=== PATIENT | female | born 1960 | race Caucasian/White ===

== ENCOUNTER 2018-01-06 20:13 | Emergency (ER) | payer OTHER ==
[2018-01-06 21:14] VITALS: BP 131/81
--- NOTE | 2018-01-06 21:26 | UC ---
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 some irritation but not painful until today. flusehd it out well. 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 no eye Dr - History of Current Complaint Chief Complaint: UCEye Stated Complaint: RIGHT EYE COMPLAINT Time Seen by Provider: 01/06/18 21:14 Hx Last Menstrual Period: 10 yrs Pain Intensity: 3 - Allergies/Home Medications Allergies/Adverse Reactions: Allergies Allergy/AdvReac Type Severity Reaction Status Date / Time Sulfa (Sulfonamide Allergy Severe Hives Verified 01/06/18 21:14 Antibiotics) Home Medications: Home Medications Cetirizine* [ZyrTEC 10 MG TAB*] 10 mg PO QPM PRN 01/06/18 [History Confirmed ] Cholecalciferol TAB* [Vitamin D TAB*] 2,000 unit PO DAILY 01/06/18 [History Confirmed 01/06/18] Dipropionate Ointment 1 applic TOPICAL DAILY 01/06/18 [History Confirmed ] Lysine HCl [l-Lysine] 500 mg PO DAILY 01/06/18 [History Confirmed 01/06/18] Multivit,Stress Formula/Zinc [Stress Formula with Zinc Tab] 1 tab PO DAILY 01/06 [History Confirmed 01/06/18] Red Rice Yeast 1 dose PO DAILY 01/06/18 [History] Turmeric Root Extract [Turmeric] 1,000 mg PO DAILY 01/06/18 [History Confirmed 01/06/18] Uvafem Hormone Tab 1 tab PO SEE INSTRUCTIONS 01/06/18 [History Confirmed ] Valacyclovir HCl [Valtrex] 1,000 mg PO DAILY PRN 01/06/18 [History Confirmed ] PMH/Surg Hx/FS Hx/Imm Hx Previously Healthy: Yes - Surgical History Surgical History: Yes Surgery Procedure, Year, and Place: bladder lift and autologous sling 2014 - Family History Known Family History: Positive: Hypertension - Social History Alcohol Use: Occasionally Substance Use Type: None Smoking Status (MU): Former Smoker When Did the Patient Quit Smoking/Using Tobacco: 1987 - Immunization History Most Recent Tetanus Shot: unknown Review of Systems Constitutional: Negative Skin: Negative Eyes: Other - see above ENT: Negative Respiratory: Negative Cardiovascular: Negative Gastrointestinal: Negative Genitourinary: Negative Motor: Negative Neurovascular: Negative Musculoskeletal: Negative Neurological: Negative Psychological: Negative Is Patient Immunocompromised?: No All Other Systems Reviewed And Are Negative: Yes Physical Exam Triage Information Reviewed: Yes Appearance: Well-Appearing, No Pain Distress, Well-Nourished - very pleasant Vital Signs: Initial Vital Signs Temp 97.7 F 01/06/18 20:53 Pulse 62 01/06/18 20:53 Resp 18 01/06/18 20:53 BP 131/81 01/06/18 20:53 Pulse Ox 99 01/06/18 20:53 Vital Signs Reviewed: Yes Eyes: Positive: Other: - + flourescein uptake corneal abrasion medial eye. mild. wood's lamp exam. ENT Exam: Normal ENT: Positive: Pharynx normal Dental Exam: Normal Neck exam: Normal Neck: Positive: Supple, Nontender, No Lymphadenopathy Respiratory: Positive: Lungs clear Cardiovascular Exam: Normal Cardiovascular: Positive: RRR Neurological Exam: Normal Psychological Exam: Normal Eye Complaint Course/Dx - Course Course Of Treatment: right corneal abrasion w/o deficit to vision. occured 5-6 d ago. treat w/ erythromycin ointment and f/u with ophtho. She prefers to f/u with Dr Snyder as she has heard of her. - Differential Dx/Diagnosis Differential Diagnosis/HQI/PQRI: Corneal Abrasion, Penetrating Injury Provider Diagnoses: right corneal abrasion Discharge - Sign-Out/Discharge Documenting (check all that apply): Patient Departure All imaging exams completed and their final reports reviewed: No Studies - Discharge Plan Condition: Stable Disposition: HOME Prescriptions: Erythromycin TOPICAL GEL* [Erythromycin OPTH OINT*] 1 applic TOPICAL TID 5 Days oint Patient Education Materials: Corneal Abrasion (ED) Referrals: Qasim ESCOBAR,Melchor Mullen [Primary Care Provider] - Cristal Snyder MD [Medical Doctor] - Additional Instructions: Make sure to follow up with ophtho on Tuesday. Use the antibiotic ointment. - Billing Disposition and Condition Condition: STABLE Disposition: Home
[2018-01-06] MEDS ORDERED: Fluorescein Sod TOPICAL 0.6* 0.6 MG TEST OPHTHALMIC ONE (21:34)
[2018-01-07] MEDS ORDERED: Erythromycin OPTH OINT* APPLIC OINT RIGHT EYE SCH (09:00)
--- NOTE | 2018-01-07 09:20 | UC ---
- Progress Note Progress Note: call from pt Prescription did not transmit upon review was missing quantity resent to pharmacy niecy 01/07/2018 Discharge - Sign-Out/Discharge Documenting (check all that apply): Post-Discharge Follow Up All imaging exams completed and their final reports reviewed: No Studies - Discharge Plan Condition: Stable Disposition: HOME Prescriptions: Erythromycin TOPICAL GEL* [Erythromycin OPTH OINT*] 1 applic TOPICAL TID 5 Days #1 oint Patient Education Materials: Corneal Abrasion (ED) Referrals: Cristal Snyder MD [Medical Doctor] - Qasim ESCOBAR,Melchor Mullen [Primary Care Provider] - Additional Instructions: Make sure to follow up with ophtho on Tuesday. Use the antibiotic ointment. - Billing Disposition and Condition Condition: STABLE Disposition: Home
== END 2018-01-06 21:54 | disposition home or self-care (01) ==
LOC: UCCORT 20:13
DX: S05.01XA Injury of conjunctiva and corneal abrasion without foreign body, right eye, initial encounter (principal); W22.8XXA Striking against or struck by other objects, initial encounter; Y92.9 Unspecified place or not applicable
CPT/HCPCS: 99202; G0463